=== PATIENT | female | born 2000 | race Caucasian/White ===

== ENCOUNTER 2021-04-18 00:05 | Emergency (ER) | payer OTHER ==
[2021-04-18] MEDS ORDERED: PROVENTIL HFA6.7 GM INH (04:11)
[2021-04-18] MEDS ORDERED: IBUPROFEN600 MG PO (04:11)
[2021-04-18] MEDS ORDERED: NORFLEX 100 MG100 MG PO (04:11)
== END 2021-04-18 04:25 | disposition home or self-care (01) ==
LOC: ER1 00:05
DX: S23.3XXA Sprain of ligaments of thoracic spine, initial encounter (principal); S33.5XXA Sprain of ligaments of lumbar spine, initial encounter; S33.8XXA Sprain of other parts of lumbar spine and pelvis, initial encounter; I11.9 Hypertensive heart disease without heart failure; X50.0XXA Overexertion from strenuous movement or load, initial encounter
CPT/HCPCS: 72128; 72131; 81001; 84703; 87086; 99284